=== PATIENT | female | born 1990 ===

== ENCOUNTER 2017-07-26 10:22 | Emergency (ER) | payer OTHER ==
[2017-07-26 10:33] VITALS: BP 123/78; PULSE 88; RESP 18; TEMP 97.9; O2SAT 100
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
--- NOTE | 2017-07-26 13:21 | CT ---
PROCEDURE: CT ORBITS WITHOUT CONTRAST. HISTORY: Left eye contusion COMPARISON: None available. TECHNIQUE: Axial CT images of the orbits were obtained. Coronal and sagittal reformats were generated. Radiation dose: Total exam DLP = mGy-cm. This CT exam was performed using one or more of the following dose reduction techniques: Automated exposure control, adjustment of the mA and/or kV according to patient size, and/or use of iterative reconstruction technique. FINDINGS: RIGHT ORBIT: RIGHT BONY ORBIT: Normal. RIGHT INTRAORBITAL STRUCTURES: Globe: Normal. Extraocular muscles: Normal. Post septal space: Normal. Optic Nerve: Normal. Lacrimal Apparatus: Normal. RIGHT PRESEPTAL SOFT TISSUES: Normal. LEFT ORBIT: LEFT BONY ORBIT: There is an acute fracture in the left lamina papyracea with lateral herniation of the belly of the medial rectus muscle and overlapping fat in the bony defect. There is mild enlargement of the medial rectus muscle likely related to contusion/edema. There is opacification of the left mid ethmoid air cells which in the setting of trauma is likely related to hemorrhagic products. LEFT INTRAORBITAL STRUCTURES: Globe: Normal. Extraocular muscles: Normal. Post septal space: Normal Optic Nerve: Normal. . Lacrimal Apparatus: Normal. LEFT PRESEPTAL SOFT TISSUES: There is mild left periorbital soft tissue swelling and a soft tissue defect in the inferior orbital soft tissue. No radiopaque foreign body. No evidence of orbital emphysema. There is also mild left premaxillary soft tissue swelling with subcutaneous fat stranding. OTHER: None. IMPRESSION: 1. Left medial orbital wall blowout fracture and herniation of the enlarged belly of the medial rectus muscle an overlying fat in the bony defect. Suspect hemorrhagic products in the left mid ethmoid air cells. 2. Mild left periorbital and premaxillary soft tissue swelling and infraorbital soft tissue injury without evidence of radiopaque foreign body or orbital emphysema. No evidence of retro bulbar or intra bulbar hematoma.
[2017-07-26] MEDS ORDERED: Amoxicillin-Clav 875-125 mg Tab PO STA (13:32)
[2017-07-26] MEDS ORDERED: Amoxicillin-Clav 875-125 mg Tab PO ONE (13:55)
== END 2017-07-26 14:10 | disposition home or self-care (01) ==
LOC: C.ER 10:22
DX: S02.82XA Fracture of other specified skull and facial bones, left side, initial encounter for closed fracture (principal); Y08.89XA Assault by other specified means, initial encounter; Y93.89 Activity, other specified; Y92.89 Other specified places as the place of occurrence of the external cause; Z23 Encounter for immunization